=== PATIENT | male | born 1975 | race Caucasian/White ===

== ENCOUNTER 2017-12-01 14:11 | Inpatient (IN) | payer MEDICARE, MEDICAID ==
--- NOTE | 2017-12-01 14:41 | ED ---
General Adult HPI - General Chief complaint: Psychiatric Symptoms Stated complaint: suicidal Time Seen by Provider: 12/01/17 14:15 Source: patient, RN notes reviewed Mode of arrival: ambulatory Limitations: no limitations - History of Present Illness Initial comments: This is a 42-year-old male with a past medical history significant for seizures and schizophrenia. According to the caregiver the patient is taking all of his medications as exposed to. Caregiver states last night he started becoming violent towards her and verbally abusive and she felt threatened by him. Caregiver states she had to leave the home because she thought he might hurt her. Patient also continued to talk about suicidal ideations all throughout the night and again this morning. The girlfriend was scared so girlfriend brought him to the emergency department. Patient states he's had a consult by going outside and staying in the cold never coming in. Patient admits he wants to kill himself because his mom 3 years ago. - Related Data Home Medications Medication Instructions Recorded Confirmed Phenytoin Sodium Extended 200 mg PO BID 05/17/16 12/01/17 [Dilantin] levETIRAcetam [Keppra] 500 mg PO Q12H 05/17/16 12/01/17 carBAMazepine [TEGretol] 200 mg PO BID 12/01/17 12/01/17 Previous Rx's Medication Instructions Recorded Atorvastatin [Lipitor] 20 mg PO HS 30 Days #30 tab 12/05/17 QUEtiapine [SEROquel] 100 mg PO BID 30 Days #30 tab 12/05/17 Allergies Allergy/AdvReac Type Severity Reaction Status Date / Time sulfamethoxazole Allergy Unknown Verified 12/04/17 17:49 [From Bactrim] trimethoprim [From Bactrim] Allergy Unknown Verified 12/04/17 17:49 Review of Systems ROS Statement: Those systems with pertinent positive or pertinent negative responses have been documented in the HPI. ROS Other: All systems not noted in ROS Statement are negative. Past Medical History Past Medical History: Hypertension, Seizure Disorder Additional Past Medical History / Comment(s): current smoker. Approx 5 cig. a day History of Any Multi-Drug Resistant Organisms: None Reported Past Surgical History: No Surgical Hx Reported Past Anesthesia/Blood Transfusion Reactions: Unable to Obtain Past Psychological History: Schizophrenia Smoking Status: Current every day smoker Past Alcohol Use History: None Reported Past Drug Use History: None Reported General Exam - General Exam Comments Initial Comments: GENERAL: Patient is well-developed and well-nourished. Patient is nontoxic and well- hydrated and is in no distress. ENT: Neck is soft and supple. No significant lymphadenopathy is noted. Oropharynx is clear. Moist mucous membranes. Neck has full range of motion without eliciting any pain. EYES: The sclera were anicteric and conjunctiva were pink and moist. Extraocular movements were intact and pupils were equal round and reactive to light. Eyelids were unremarkable. PULMONARY: Unlabored respirations. Good breath sounds bilaterally. No audible rales rhonchi or wheezing was noted. CARDIOVASCULAR: There is a regular rate and rhythm without any murmurs gallops or rubs. ABDOMEN: Soft and nontender with normal bowel sounds. SKIN: Skin is clear with no lesions or rashes and otherwise unremarkable. NEUROLOGIC: Patient is alert and oriented x3. Cranial nerves II through XII are grossly intact. Motor and sensory are also intact. Normal speech, volume and content. Symmetrical smile. MUSCULOSKELETAL: Normal extremities with adequate strength and full range of motion. LYMPHATICS: No significant lymphadenopathy is noted PSYCHIATRIC: Patient states he suicidal. Patient also has some upper swollen the room particularly when asked to do something he usually uncooperative for a short period time and then he starts to cooperate. Limitations: no limitations Course Vital Signs 12/01/17 12/01/17 14:15 20:30 Temperature 97.6 F Pulse Rate 82 Respiratory 16 18 Rate Blood Pressure 131/94 O2 Sat by Pulse 99 Oximetry Medical Decision Making - Lab Data Result diagrams: 12/01/17 14:45 12/02/17 09:21 Lab Results 12/01/17 12/01/17 12/01/17 Range/Units 14:45 14:45 14:45 WBC (3.8-10.6) k/uL RBC (4.30-5.90) m/uL Hgb (13.0-17.5) gm/dL Hct (39.0-53.0) % MCV (80.0-100.0) fL MCH (25.0-35.0) pg MCHC (31.0-37.0) g/dL RDW (11.5-15.5) % Plt Count (150-450) k/uL Neutrophils % % Lymphocytes % % Monocytes % % Eosinophils % % Basophils % % Neutrophils # (1.3-7.7) k/uL Lymphocytes # (1.0-4.8) k/uL Monocytes # (0-1.0) k/uL Eosinophils # (0-0.7) k/uL Basophils # (0-0.2) k/uL Sodium (137-145) mmol/L Potassium (3.5-5.1) mmol/L Chloride (98-107) mmol/L Carbon Dioxide (22-30) mmol/L Anion Gap mmol/L BUN (9-20) mg/dL Creatinine (0.66-1.25) mg/dL Est GFR (CKD-EPI)AfAm (>60 ml/min/1.73 sqM) Est GFR (CKD-EPI)NonAf (>60 ml/min/1.73 sqM) Glucose (74-99) mg/dL Calcium (8.4-10.2) mg/dL Total Bilirubin (0.2-1.3) mg/dL AST (17-59) U/L ALT (21-72) U/L Alkaline Phosphatase (38-126) U/L Total Protein (6.3-8.2) g/dL Albumin (3.5-5.0) g/dL Urine Color Urine Appearance (Clear) Urine pH (5.0-8.0) Ur Specific [place] (1.001-1.035) Urine Protein (Negative) Urine Glucose (UA) (Negative) Urine Ketones (Negative) Urine Blood (Negative) Urine Nitrite (Negative) Urine Bilirubin (Negative) Urine Urobilinogen (<2.0) mg/dL Ur Leukocyte Esterase (Negative) Urine Opiates Screen Not Detected (NotDetected) Ur Oxycodone Screen Not Detected (NotDetected) Urine Methadone Screen Not Detected (NotDetected) Ur Propoxyphene Screen Not Detected (NotDetected) Ur Barbiturates Screen Detected H (NotDetected) Phenytoin 10.4 ug/mL U Tricyclic Antidepress Not Detected (NotDetected) Levetiracetam 9.1 (3.0-60.0) ug/mL Ur Phencyclidine Scrn Not Detected (NotDetected) Ur Amphetamines Screen Not Detected (NotDetected) U Methamphetamines Scrn Not Detected (NotDetected) U Benzodiazepines Scrn Not Detected (NotDetected) Urine Cocaine Screen Not Detected (NotDetected) U Marijuana (THC) Screen Not Detected (NotDetected) 12/01/17 12/01/17 12/01/17 Range/Units 14:45 14:45 14:45 WBC 5.9 (3.8-10.6) k/uL RBC 5.04 (4.30-5.90) m/uL Hgb 15.3 (13.0-17.5) gm/dL Hct 46.3 (39.0-53.0) % MCV 91.9 (80.0-100.0) fL MCH 30.4 (25.0-35.0) pg MCHC 33.1 (31.0-37.0) g/dL RDW 12.5 (11.5-15.5) % Plt Count 199 (150-450) k/uL Neutrophils % 66 % Lymphocytes % 21 % Monocytes % 8 % Eosinophils % 4 % Basophils % 0 % Neutrophils # 3.8 (1.3-7.7) k/uL Lymphocytes # 1.3 (1.0-4.8) k/uL Monocytes # 0.5 (0-1.0) k/uL Eosinophils # 0.2 (0-0.7) k/uL Basophils # 0.0 (0-0.2) k/uL Sodium 143 (137-145) mmol/L Potassium 4.0 (3.5-5.1) mmol/L Chloride 108 H (98-107) mmol/L Carbon Dioxide 23 (22-30) mmol/L Anion Gap 12 mmol/L BUN 8 L (9-20) mg/dL Creatinine 0.70 (0.66-1.25) mg/dL Est GFR (CKD-EPI)AfAm >90 (>60 ml/min/1.73 sqM) Est GFR (CKD-EPI)NonAf >90 (>60 ml/min/1.73 sqM) Glucose 89 (74-99) mg/dL Calcium 10.0 (8.4-10.2) mg/dL Total Bilirubin 0.6 (0.2-1.3) mg/dL AST 86 H (17-59) U/L ALT 20 L (21-72) U/L Alkaline Phosphatase 94 (38-126) U/L Total Protein 7.8 (6.3-8.2) g/dL Albumin 4.2 (3.5-5.0) g/dL Urine Color Light Yellow Urine Appearance Clear (Clear) Urine pH 6.0 (5.0-8.0) Ur Specific [place] 1.008 (1.001-1.035) Urine Protein Negative (Negative) Urine Glucose (UA) Negative (Negative) Urine Ketones Negative (Negative) Urine Blood Negative (Negative) Urine Nitrite Negative (Negative) Urine Bilirubin Negative (Negative) Urine Urobilinogen <2.0 (<2.0) mg/dL Ur Leukocyte Esterase Negative (Negative) Urine Opiates Screen (NotDetected) Ur Oxycodone Screen (NotDetected) Urine Methadone Screen (NotDetected) Ur Propoxyphene Screen (NotDetected) Ur Barbiturates Screen (NotDetected) Phenytoin ug/mL U Tricyclic Antidepress (NotDetected) Levetiracetam (3.0-60.0) ug/mL Ur Phencyclidine Scrn (NotDetected) Ur Amphetamines Screen (NotDetected) U Methamphetamines Scrn (NotDetected) U Benzodiazepines Scrn (NotDetected) Urine Cocaine Screen (NotDetected) U Marijuana (THC) Screen (NotDetected) Disposition Clinical Impression: Schizophrenia Disposition: ADMITTED IP TO THIS [facility] Time of Disposition: 15:09
[2017-12-01 14:59] LABS: Amphetamine Screen,Urine Not Detected (NotDetected); Barbiturate Screen,Urine Detected (NotDetected); Benzodiazepines Screen,Urine Not Detected (NotDetected); Cocaine Screen,Urine Not Detected (NotDetected); Methadone Screen, Urine Not Detected (NotDetected); Opiate Screen,Urine Not Detected (NotDetected); Oxycodone Screen, Urine Not Detected (NotDetected); Phencyclidine Screen,Urine Not Detected (NotDetected); Tricyclic Antidepressant,Urine Not Detected (NotDetected); Urn Cannabinoid Scrn Not Detected (NotDetected)
[2017-12-01 19:14] LABS: Basophils % (A) 0 %; Eosinophils # (A) 0.2 k/uL (0-0.7); Eosinophils % (A) 4 %; HCT 46.3 % (39.0-53.0); HGB 15.3 gm/dL (13.0-17.5); Lymphocytes # (A) 1.3 k/uL (1.0-4.8); Lymphocytes % (A) 21 %; MCH 30.4 pg (25.0-35.0); MCHC 33.1 g/dL (31.0-37.0); MCV 91.9 fL (80.0-100.0); Monocytes # (A) 0.5 k/uL (0-1.0); Monocytes % (A) 8 %; Neutrophils # (A) 3.8 k/uL (1.3-7.7); Neutrophils % (A) 66 %; Platelet Count 199 k/uL (150-450); RBC 5.04 m/uL (4.30-5.90); RDW 12.5 % (11.5-15.5); WBC 5.9 k/uL (3.8-10.6)
[2017-12-01 19:18] LABS: ALT 20 U/L (21-72); AST 86 U/L (17-59); Albumin 4.2 g/dL (3.5-5.0); Alkaline Phosphatase 94 U/L (38-126); Anion Gap 12 mmol/L; Blood Urea Nitrogen 8 mg/dL (9-20); Carbon Dioxide 23 mmol/L (22-30); Chloride 108 mmol/L (98-107); Glucose 89 mg/dL (74-99); Sodium 143 mmol/L (137-145); Total Bilirubin 0.6 mg/dL (0.2-1.3); Total Protein 7.8 g/dL (6.3-8.2)
[2017-12-01 19:50] LABS: Appearance,Urine Clear (Clear); Bilirubin,Urine Negative (Negative); Blood,Urine Negative (Negative); Color,Urine Light Yellow; Glucose,Urine (UA) Negative (Negative); Ketones,Urine Negative (Negative); Leukocyte Esterase,Urine Negative (Negative); Nitrite,Urine Negative (Negative); Protein,Urine Negative (Negative); Specific Gravity,Urine 1.008 (1.001-1.035); Urobilinogen,Urine <2.0 mg/dL (<2.0)
[2017-12-01] MEDS ORDERED: MAGNESIUM HYDROXIDE 2,400 MG/10 ML CUP PO PRN (22:34)
[2017-12-01] MEDS ORDERED: ZIPRASIDONE 20 MG VIAL IM PRN (22:34)
[2017-12-01] MEDS ORDERED: MAG HYDROX/AL HYDROX/SIMETH 30 ML CUP PO PRN (22:34)
[2017-12-01] MEDS ORDERED: ACETAMINOPHEN TAB 325 MG TAB PO PRN (22:34)
[2017-12-01] MEDS: ATORVASTATIN 20 MG TAB PO SCH (23:16)
[2017-12-01] MEDS: PHENYTOIN SODIUM EXTENDED 100 MG CAP PO SCH (23:16)
[2017-12-01] MEDS: levETIRAcetam 500 MG TAB PO SCH (23:16)
[2017-12-01] MEDS: carBAMazepine 200 MG TAB PO SCH (23:16)
[2017-12-02] MEDS: PHENYTOIN SODIUM EXTENDED 100 MG CAP PO SCH ×2 (08:42→20:03)
[2017-12-02] MEDS: carBAMazepine 200 MG TAB PO SCH ×2 (08:44→20:03)
[2017-12-02] MEDS ORDERED: BENZTROPINE MESYLATE 1 MG TAB PO SCH (09:00)
[2017-12-02] MEDS ORDERED: QUEtiapine 50 MG TAB PO SCH (09:00)
--- NOTE | 2017-12-02 09:03 | P.HP ---
Psychiatric H&P - . H&P Date: 12/02/17 History & Physical: Allergies Allergy/AdvReac Type Severity Reaction Status Date / Time sulfamethoxazole Allergy Unknown Verified 12/01/17 14:40 [From Bactrim] trimethoprim [From Bactrim] Allergy Unknown Verified 12/01/17 14:40 Vital Signs Temp 97.7 F 12/02/17 06:21 Pulse 73 12/02/17 06:21 Resp 16 12/02/17 06:21 BP 104/56 12/02/17 06:21 Pulse Ox 99 12/01/17 23:32 Intake & Output 12/01/17 12/02/17 12/02/17 18:59 06:59 18:59 Weight 83.461 kg 84.1 kg Laboratory Last Values WBC 5.9 k/uL (3.8-10.6) 12/01/17 14:45 RBC 5.04 m/uL (4.30-5.90) 12/01/17 14:45 Hgb 15.3 gm/dL (13.0-17.5) 12/01/17 14:45 Hct 46.3 % (39.0-53.0) 12/01/17 14:45 MCV 91.9 fL (80.0-100.0) 12/01/17 14:45 MCH 30.4 pg (25.0-35.0) 12/01/17 14:45 MCHC 33.1 g/dL (31.0-37.0) 12/01/17 14:45 RDW 12.5 % (11.5-15.5) 12/01/17 14:45 Plt Count 199 k/uL (150-450) 12/01/17 14:45 Neutrophils % 66 % 12/01/17 14:45 Lymphocytes % 21 % 12/01/17 14:45 Monocytes % 8 % 12/01/17 14:45 Eosinophils % 4 % 12/01/17 14:45 Basophils % 0 % 12/01/17 14:45 Neutrophils # 3.8 k/uL (1.3-7.7) 12/01/17 14:45 Lymphocytes # 1.3 k/uL (1.0-4.8) 12/01/17 14:45 Monocytes # 0.5 k/uL (0-1.0) 12/01/17 14:45 Eosinophils # 0.2 k/uL (0-0.7) 12/01/17 14:45 Basophils # 0.0 k/uL (0-0.2) 12/01/17 14:45 Sodium 143 mmol/L (137-145) 12/01/17 14:45 Potassium 4.0 mmol/L (3.5-5.1) 12/01/17 14:45 Chloride 108 mmol/L (98-107) H 12/01/17 14:45 Carbon Dioxide 23 mmol/L (22-30) 12/01/17 14:45 Anion Gap 12 mmol/L 12/01/17 14:45 BUN 8 mg/dL (9-20) L 12/01/17 14:45 Creatinine 0.70 mg/dL (0.66-1.25) 12/01/17 14:45 Est GFR (CKD-EPI)AfAm >90 (>60 ml/min/1.73 sqM) 12/01/17 14:45 Est GFR (CKD-EPI)NonAf >90 (>60 ml/min/1.73 sqM) 12/01/17 14:45 Glucose 89 mg/dL (74-99) 12/01/17 14:45 Calcium 10.0 mg/dL (8.4-10.2) 12/01/17 14:45 Total Bilirubin 0.6 mg/dL (0.2-1.3) 12/01/17 14:45 AST 86 U/L (17-59) H 12/01/17 14:45 ALT 20 U/L (21-72) L 12/01/17 14:45 Alkaline Phosphatase 94 U/L (38-126) 12/01/17 14:45 Total Protein 7.8 g/dL (6.3-8.2) 12/01/17 14:45 Albumin 4.2 g/dL (3.5-5.0) 12/01/17 14:45 Urine Color Light Yellow 12/01/17 14:45 Urine Appearance Clear (Clear) 12/01/17 14:45 Urine pH 6.0 (5.0-8.0) 12/01/17 14:45 Ur Specific [place] 1.008 (1.001-1.035) 12/01/17 14:45 Urine Protein Negative (Negative) 12/01/17 14:45 Urine Glucose (UA) Negative (Negative) 12/01/17 14:45 Urine Ketones Negative (Negative) 12/01/17 14:45 Urine Blood Negative (Negative) 12/01/17 14:45 Urine Nitrite Negative (Negative) 12/01/17 14:45 Urine Bilirubin Negative (Negative) 12/01/17 14:45 Urine Urobilinogen <2.0 mg/dL (<2.0) 12/01/17 14:45 Ur Leukocyte Esterase Negative (Negative) 12/01/17 14:45 Urine Opiates Screen Not Detected (NotDetected) 12/01/17 14:45 Ur Oxycodone Screen Not Detected (NotDetected) 12/01/17 14:45 Urine Methadone Screen Not Detected (NotDetected) 12/01/17 14:45 Ur Propoxyphene Screen Not Detected (NotDetected) 12/01/17 14:45 Ur Barbiturates Screen Detected (NotDetected) H 12/01/17 14:45 Phenytoin 10.4 ug/mL 12/01/17 14:45 U Tricyclic Antidepress Not Detected (NotDetected) 12/01/17 14:45 Ur Phencyclidine Scrn Not Detected (NotDetected) 12/01/17 14:45 Ur Amphetamines Screen Not Detected (NotDetected) 12/01/17 14:45 U Methamphetamines Scrn Not Detected (NotDetected) 12/01/17 14:45 U Benzodiazepines Scrn Not Detected (NotDetected) 12/01/17 14:45 Urine Cocaine Screen Not Detected (NotDetected) 12/01/17 14:45 U Marijuana (THC) Screen Not Detected (NotDetected) 12/01/17 14:45 12/02/17 08:43 Identification: Braulio Tarango is a 42 years old single white male living in [facility]. He was admitted to [facility] on 2017 under petition stating that he became violent towards his caregiver, verbally abusive and threatened etc. History of present illness: Patient is quite uncooperative and refuses to provide good history. He refused to either acknowledge or denied the report that he was abusive and violent and had threatened. All he can tell me is he lives with his stepmother, his brother and finani, Mrs. his mother who about 3 years ago from kidney failure. Because of this he said he feels unhappy and depressed. He however admitted that he gets angry sometimes, may get physically violent etc. his admission note indicates he has a diagnosis of schizophrenia. Previous psychiatric history/drug and alcohol abuse: Patient said he was never in a psychiatric hospital. He said he gets his outpatient treatment at [facility]. He is on Prolixin 10 mg a day, Benadryl 50 mg at bedtime, Klonopin 0.5 mg twice a day and Cogentin 2 mg 3 times a day. He also takes medicine for physical problems. Apparently he has been taking his medications regularly as prescribed and administered by his aunt. He denies abusing drugs and alcohol. Drug screening was positive for barbiturates. Previous medical history: He is ALLERGIC to Bactrim. He has seizure disorder and takes Dilantin and Tegretol and Keppra. H he said he did not have any surgery. He has hyperlipidemia and is on simvastatin. Social history: Patient refused to tell me how far he went to school. He however said he did not have any issues with learning or discipline. He said he had played football and basketball baseball soccer etc., was quite outgoing etc. He said he was raised well by his parents without abuse. He is currently disabled, gets SSI and has Medicare. He was not in the service. He refused to tell me about his denominational but he said he believes in God and goes to [employer]. He is heterosexual. He denies any pending legal issues. Family history: He denies any history of physical or psychiatric problems in the family. Mental status examination: This is a white ambulatory male with fair hygiene. He is unshaven. He is quite guarded and appears to be paranoid, refuses to provide adequate history and is uncooperative. He does not show any psychomotor agitation or retardation but he appears to be rather bizarre. His speech is short and goal directed but he refuses to provide good information. His mood is anxious and affect seems to be somewhat increased in intensity. He denies hallucinations and delusional thinking. But he appears to be quite paranoid from his behavior. He denies suicidal and homicidal ideas. He said today is 12/05/2017. He is not able to recall even one out of 3 items after 5 minutes. He is not able to name the current or the last 4 presidents. He refused to tell me how much is 8+7. His insight is poor and judgment is impaired as evidenced by his paranoia and history of threatening behavior at home. Diagnostic impression: Schizophrenia F 20.9 ALLERGY to Bactrim Seizure disorder Hyper lipidemia Treatment plan: He will have physical examination and psychosocial evaluation. He will receive milieu therapy group therapy individual therapy occupational therapy recreational therapy and medication education. He was counseled about his medication and it was agreed to change his Prolixin and Cogentin and Benadryl to Seroquel 50 mg twice a day and adjust the dose. He agreed to sign voluntary application and take medication. Continue anti-seizure medications and simvastatin for seizure disorder and hyperlipidemia. Treatment goals: He will be free of violent and threatening behavior. He will learn better coping skills. He will be able to provide better information. Discharge with outpatient follow-up. Estimated length of stay: 5-10 days.
[2017-12-02 10:11] LABS: ALT 35 U/L (21-72); AST 23 U/L (17-59); Albumin 4.2 g/dL (3.5-5.0); Alkaline Phosphatase 85 U/L (38-126); Anion Gap 9 mmol/L; Blood Urea Nitrogen 12 mg/dL (9-20); Calcium 9.6 mg/dL (8.4-10.2); Carbon Dioxide 31 mmol/L (22-30); Chloride 103 mmol/L (98-107); Cholesterol 218 mg/dL (<200); Glucose 94 mg/dL (74-99); HDL Cholesterol 57 mg/dL (40-60); LDL Cholesterol,Calculated 134 mg/dL (0-99); Potassium 4.3 mmol/L (3.5-5.1); Sodium 143 mmol/L (137-145); Total Bilirubin 0.4 mg/dL (0.2-1.3); Total Protein 7.2 g/dL (6.3-8.2); Triglycerides 137 mg/dL (<150)
[2017-12-02] MEDS: levETIRAcetam 500 MG TAB PO SCH ×2 (10:33→22:19)
[2017-12-02 11:03] LABS: Carbamazepine (Tegretol) 4.1 ug/mL
--- NOTE | 2017-12-02 14:09 | P.PN ---
Progress Note - Text Progress Note Date: 12/02/17 Patient received Seroquel 50 mg this morning by mouth. He does not have any adverse effects, is ambulatory and appears to be a little bit more relaxed. Plan: Since patient was started on a small dose of Seroquel to prevent adverse effects and since none he seen, Seroquel is increased to 100 mg twice a day.
--- NOTE | 2017-12-02 14:39 | P.HPIM ---
History of Present Illness H&P Date: 12/02/17 Chief Complaint: Depression Patient is a 42-year-old male with a known history of hypertension, seizure disorder and depression admitted due to violent behavior and thoughts of suicidal ideation. Patient has not been taking his medications. As per caregiver report he started to become violent towards her and verbally abusive and she felt threatened by him. Caregiver states she had to leave the home because she thought he might hurt her. Patient also continued to talk about suicidal ideations all throughout the night and again this morning. The girlfriend was scared so girlfriend brought him to the emergency department. Patient admits he wants to kill himself because his mom 3 years ago. Currently denied any complaints of chest pain or shortness of breath. No nausea vomiting or abdominal pain. No cough or sputum production. Patient continues to smoke 1 pack per day. Denied any drugs IVDU. No Recent illnesses. As per patient. Review of Systems \Constitutional: Patient denies any fever or chills . No generalized weakness or weight loss. Abdomen: Patient denied nausea vomiting and diarrhea and abdominal pain. Cardiovascular: Patient denies any chest pain or short of breath no palpitations. Respiratory: patient denied any cough is from production. No shortness of breath Neurologic: Patient denied any numbness or tingling headache. Musculoskeletal: Patient denies any complaints of joint swelling or deformity. Skin: Negative Psychiatric: Depressed Endocrine: No heat or cold intolerance. No recent weight gain. Genitourinary: No dysuria or hematuria. All other 14 point ROS negative except the above Past Medical History Past Medical History: Hypertension, Seizure Disorder Additional Past Medical History / Comment(s): current smoker. Approx 5 cig. a day History of Any Multi-Drug Resistant Organisms: None Reported Past Surgical History: No Surgical Hx Reported Past Anesthesia/Blood Transfusion Reactions: Unable to Obtain Past Psychological History: Schizophrenia Smoking Status: Current every day smoker Past Alcohol Use History: None Reported Past Drug Use History: None Reported Medications and Allergies Home Medications Medication Instructions Recorded Confirmed Type Benztropine Mesylate [Cogentin] 2 mg PO TID 05/17/16 12/01/17 History Fluphenazine HCl [fluPHENAZine HCL] 10 mg PO DAILY 05/17/16 12/01/17 History Phenytoin Sodium Extended 200 mg PO BID 05/17/16 12/01/17 History [Dilantin] Simvastatin [Zocor] 40 mg PO HS 05/17/16 12/01/17 History levETIRAcetam [Keppra] 500 mg PO Q12H 05/17/16 12/01/17 History carBAMazepine [TEGretol] 200 mg PO BID 12/01/17 12/01/17 History Allergies Allergy/AdvReac Type Severity Reaction Status Date / Time sulfamethoxazole Allergy Unknown Verified 12/01/17 14:40 [From Bactrim] trimethoprim [From Bactrim] Allergy Unknown Verified 12/01/17 14:40 Physical Exam Vitals: Vital Signs Temp Pulse Pulse Resp BP BP Pulse Ox 12/02/17 06:21 97.7 F 73 16 104/56 12/01/17 23:32 97.0 F L 73 16 128/89 99 12/01/17 22:33 97.3 F L 80 18 141/87 96 12/01/17 20:30 18 12/01/17 14:15 97.6 F 82 16 131/94 99 Intake and Output 12/01/17 12/02/17 12/02/17 22:59 06:59 14:59 Other: Weight 84.1 kg PHYSICAL EXAMINATION: Patient is lying in the bed comfortably, no acute distress, awake alert and oriented.. Patient talks slow HEENT: Normocephalic. Neck is supple. Pupils reactive. Nostrils clear. Oral cavity is moist. Ears reveal no drainage. Neck reveals no JVD, carotid bruits, or thyromegaly. CHEST EXAMINATION: Trachea is central. Symmetrical expansion. Lung tolbert clear to auscultation and percussion. CARDIAC: Normal S1, S2 with no gallops. No murmurs ABDOMEN: Soft. Bowel sounds normal. No organomegaly. No abdominal bruits. Extremities: reveal no edema. No clubbing or cyanosis Neurologically awake, alert, oriented x3 with well-coordinated movements. No focal deficits noted Skin: No rash or skin lesions. Psychiatric: Cooperative. Denied any suicidal ideation at this time. Musculoskeletal: No joint swelling or deformity. Normal range of motion. Results CBC & Chem 7: 12/01/17 14:45 12/02/17 09:21 Labs: Abnormal Lab Results - Last 24 Hours (Table) 12/01/17 12/01/17 12/02/17 Range/Units 14:45 14:45 09:21 Chloride 108 H (98-107) mmol/L Carbon Dioxide 31 H (22-30) mmol/L BUN 8 L (9-20) mg/dL AST 86 H (17-59) U/L ALT 20 L (21-72) U/L Cholesterol 218 H (<200) mg/dL LDL Cholesterol, Calc 134 H (0-99) mg/dL TSH 5.630 H (0.465-4.680) mIU/L Ur Barbiturates Screen Detected H (NotDetected) Thrombosis Risk Factor Assmnt - DVT/VTE Prophylaxis DVT/VTE Prophylaxis: Pharmacologic Prophylaxis ordered Assessment and Plan Assessment: Acute violent behavior and suicidal ideation History of schizophrenia Hypertension controlled Seizure disorder. patient is on Keppra and Dilantin at home Nicotine addiction Mild hypothyroidism. Slightly elevated TSH. 5.63 and free T4 0.96 Hyperlipidemia LDL 134 Slightly elevated liver enzymes. Normalized now Plan: Patient will be continued on his psychiatric medications. Continue with Keppra and Dilantin. TSH is slightly elevated but free T4 level is low-normal level. Patient can be started on levothyroxine 25 g daily. Continue to monitor closely. Further recommendations based on the clinical course Thank you for your consult. Time with Patient: Greater than 30
[2017-12-02 20:02] LABS: Hemoglobin A1C 4.8 % (4.0-6.0)
[2017-12-02] MEDS: ATORVASTATIN 20 MG TAB PO SCH (20:03)
[2017-12-02] MEDS: QUEtiapine 100 MG TAB PO SCH (20:03)
[2017-12-03] MEDS: carBAMazepine 200 MG TAB PO SCH ×2 (08:15→21:29)
[2017-12-03] MEDS: PHENYTOIN SODIUM EXTENDED 100 MG CAP PO SCH ×2 (08:15→21:29)
[2017-12-03] MEDS: QUEtiapine 100 MG TAB PO SCH ×2 (08:15→21:29)
[2017-12-03] MEDS: levETIRAcetam 500 MG TAB PO SCH ×2 (11:33→21:29)
--- NOTE | 2017-12-03 12:15 | P.PN ---
Progress Note - Text Progress Note Date: 12/03/17 Patient was seen for a follow-up examination. He is somewhat sleepy this morning. He has not been agitated or combative. He said he went to his groups today and it went well. He is a little bit more open about talking his issues discharge plans etc. today. He is still eager to go home this or Saturday. Today is Saturday. This is a white ambulatory male who is unshaven. He is somewhat sleepy. He does not show any psychomotor agitation or retardation. His speech is short and goal directed. His mood is rather dull and affect is somewhat constricted in range he denies hallucinations, delusional thinking, suicidal and homicidal ideas. He is oriented. But his intellectual capacity seems to be rather low. Plan: Continue Seroquel 100 mg twice a day, groups and other activities.
[2017-12-03] MEDS: ATORVASTATIN 20 MG TAB PO SCH (21:29)
[2017-12-04 06:48] VITALS: TEMP 97.6
[2017-12-04] MEDS: QUEtiapine 100 MG TAB PO SCH ×2 (08:56→20:52)
[2017-12-04] MEDS: carBAMazepine 200 MG TAB PO SCH ×2 (08:56→20:52)
[2017-12-04] MEDS: PHENYTOIN SODIUM EXTENDED 100 MG CAP PO SCH ×2 (08:57→20:52)
[2017-12-04] MEDS: levETIRAcetam 500 MG TAB PO SCH ×2 (11:41→22:07)
--- NOTE | 2017-12-04 11:42 | P.PN ---
Progress Note - Text Progress Note Date: 12/04/17 Patient was seen for a routine follow-up examination. He is calm polite and cooperative. He is not sleepy today. He slept well last night. He has been attending his groups. He uses foul language and he was advised not to use foul language. He said he will try not to. He takes his medications and does not have any adverse effects. Today he said he had difficulty in learning and was since special-education. He could not tell me the name take for his learning problems. This is a white ambulatory male with adequate hygiene. He is polite and cooperative. He does not show any psychomotor agitation or retardation. His speech is spontaneous and goal-directed. But he uses foul language. His mood is euthymic and affect is appropriate. He continues to deny suicide and homicide thoughts. He also denies hallucinations and delusional thinking. His insight and judgment have improved as evidenced by not getting violent or threatening he is oriented. But he still has some cognitive difficulties. Plan: Continue Seroquel, medicines for physical problems, groups and other activities. Consider discharging him tomorrow if nothing happened yesterday.
[2017-12-04 17:49] VITALS: BMI 25.1
[2017-12-04] MEDS: ATORVASTATIN 20 MG TAB PO SCH (20:52)
[2017-12-05 05:50] VITALS: BP 119/70; PULSE 68; RESP 18
--- NOTE | 2017-12-05 08:26 | P.DS ---
Providers Date of admission: 12/01/17 22:26 Expected date of discharge: 12/05/17 Attending physician: Juani Calvin Consults: 12/01/17 22:34 Consult Physician Routine Consulting Provider: Nena Reddy Consult Reason/Comments: H& P medical management Do you want consulting provider notified?: Yes, Notify in am Primary care physician: [facility] Course: Patient had his physical examination psychiatric evaluation and psychosocial evaluation. His Zocor was changed to Lipitor by the admitting physician or the physician who gave him physical examination. After psychiatric evaluation, his Prolixin Benadryl and high dose of Cogentin where discontinued and he was started with Seroquel 50 mg twice a day. He did not have any adverse effects from this dose and it was increased to 100 mg twice a day. The first day he was rather sleepy but after this he was not sleepy during the daytime at all. Patient continued to improve did not have any angry outbursts, threatening behavior or psychotic behavior. He also became more cooperative and was willing to provide better information. Even though his admitting doctor said he has a diagnosis of schizophrenia I did not see any sign or symptom of schizophrenia in him. He reported that he had difficulty in learning when he was going to school and was in special classes. In view of all these his primary diagnosis does not seem to be schizophrenia. Patient has been attending his groups, socializing with other patients and getting along well with staff members. He was visited by his girlfriend/fianc/ and she was happy to see him do so well. In view of all these it was agreed to discharge him. Condition on discharge: This is a white ambulatory male with adequate hygiene. He is unshaven. He does not show any psychomotor agitation or retardation. His speech is spontaneous and goal-directed. Mood is euthymic and affect is appropriate to thought content. He continues to deny suicidal and homicidal ideas. He also denies hallucinations and delusional thinking. He is well oriented with adequate memory and concentration but he has major difficulties in addition subtraction and multiplication etc. He also has deficits in general knowledge. His insight and judgment have improved. 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 Unspecified intellectual disability F 79. ALLERGY to Bactrim. Seizure disorder Hyperlipidemia. Patient was advised to take his medications as prescribed, not to drive or operate machinery, not to drink alcohol or use drugs, seek anger management classes, learn better coping skills through therapy, if he gets suicidal or homicidal thoughts to discuss with his therapist and if he cannot reach the therapist to go to the nearest ER. He agreed with all these recommendations. Plan - Discharge Summary Discharge Rx Participant: No New Discharge Prescriptions: New Atorvastatin [Lipitor] 20 mg PO HS 30 Days #30 tab QUEtiapine [SEROquel] 100 mg PO BID 30 Days #30 tab Continue levETIRAcetam [Keppra] 500 mg PO Q12H Phenytoin Sodium Extended [Dilantin] 200 mg PO BID carBAMazepine [TEGretol] 200 mg PO BID Discontinued Simvastatin [Zocor] 40 mg PO HS Fluphenazine HCl [fluPHENAZine HCL] 10 mg PO DAILY Benztropine Mesylate [Cogentin] 2 mg PO TID Discharge Medication List Phenytoin Sodium Extended [Dilantin] 200 mg PO BID 05/17/16 [History] levETIRAcetam [Keppra] 500 mg PO Q12H 05/17/16 [History] carBAMazepine [TEGretol] 200 mg PO BID 12/01/17 [History] Atorvastatin [Lipitor] 20 mg PO HS 30 Days #30 tab 12/05/17 [Rx] QUEtiapine [SEROquel] 100 mg PO BID 30 Days #30 tab 12/05/17 [Rx] Follow up Appointment(s)/Referral(s): [facility] [Outside] - 12/11/17 9:00 am (12/11/17 at 9:00am - injection with nurse 12/11/17 at 9:30am with Celestino 12/25/17 at 9:00am med review with Dr. Colón) Jose Quinonez MD [Primary Care Provider] - 1-2 days
[2017-12-05] MEDS: PHENYTOIN SODIUM EXTENDED 100 MG CAP PO SCH (08:33)
[2017-12-05] MEDS: QUEtiapine 100 MG TAB PO SCH (08:33)
[2017-12-05] MEDS: carBAMazepine 200 MG TAB PO SCH (08:33)
[2017-12-05] MEDS: levETIRAcetam 500 MG TAB PO SCH (10:46)
== END 2017-12-05 11:58 | disposition home or self-care (01) | DRG 882 ==
LOC: EC 14:11 → 3MHU 22:26
PROVIDERS: ADMIT Psychiatry & Neurology Psychiatry; ATTEND Psychiatry & Neurology Psychiatry
DX: F43.25 Adjustment disorder with mixed disturbance of emotions and conduct (principal); R45.851 Suicidal ideations; F20.9 Schizophrenia, unspecified; G40.909 Epilepsy, unspecified, not intractable, without status epilepticus; F79 Unspecified intellectual disabilities; F32.9 Major depressive disorder, single episode, unspecified; E78.5 Hyperlipidemia, unspecified; I10 Essential (primary) hypertension; F17.210 Nicotine dependence, cigarettes, uncomplicated; E03.9 Hypothyroidism, unspecified; R74.8 Abnormal levels of other serum enzymes; Z79.899 Other long term (current) drug therapy; Z88.2 Allergy status to sulfonamides
CPT/HCPCS: 36415; 80053; 80061; 80156; 80177; 80185; 80306; 81003; 82075; 83036; 84439; 84443; 85025; 99285

== ENCOUNTER → 2019-04-01 | Outpatient (CLI) | payer MEDICARE, OTHER ==
--- NOTE | 2019-04-03 11:19 | MR ---
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 TECHNIQUE: Multiplanar, multisequence images of the knee is performed without IV contrast. FINDINGS: MEDIAL MENISCUS: Anterior and posterior horns are intact without tear. LATERAL MENISCUS: Anterior and posterior horns are intact without tear. CRUCIATE LIGAMENTS: The anterior cruciate ligament is intact. There is accessory meniscal femoral lig ament of Piedra anterior to PCL confirmed on coronal and sagittal images. There is extensive partia l tear of the fibers of the distal posterior cruciate ligament seen best on sagittal image 18 COLLATERAL LIGAMENTS: The medial collateral ligament and lateral collateral ligament complex are inta ct. Mild fluid signal surrounds medial collateral and lateral collateral ligament complexes. EXTENSOR MECHANISM: Visualized quadriceps and patellar tendons are intact. EFFUSION: There is small suprapatellar joint effusion. POPLITEAL CYST: No popliteal/sterling cyst. TRICOMPARTMENT SPACES: There is mild to moderate narrowing patellofemoral compartment with mild narro wing medial and lateral tibiofemoral compartments. No significant spurring is present. CARTILAGE: Tricompartmental articular cartilage is fairly well preserved. BONE MARROW SIGNAL: No focal abnormal marrow signal is appreciated. OTHER: No additional significant abnormality is appreciated. IMPRESSION: No meniscal tear is evident. Significant tear of the distal PCL. Mild to moderate tricomp artment degenerative changes. Small suprapatellar joint effusion.
== END | disposition home or self-care (01) ==
LOC: RADMRIMAIN 12:50
PROVIDERS: ATTEND Orthopaedic Surgery
DX: M25.562 Pain in left knee (principal); M25.462 Effusion, left knee

== ENCOUNTER 2024-08-14 20:43 | Observation (INO) | payer MEDICARE, OTHER ==
--- NOTE | 2024-08-14 22:05 | ED ---
General Adult HPI - General Chief complaint: Seizure Stated complaint: Seizure Time Seen by Provider: 08/14/24 21:35 Source: EMS Mode of arrival: EMS - History of Present Illness Initial comments: Braulio is a 49-year-old male who was brought to the ER today by EMS. Patient has a history of seizure disorders he lives at a care facility in [facility], apparently he had a seizure there. Patient does not recall having a seizure does not know when his last seizure was he is administered his meds by the caregivers believes he has been compliant. Denies any complaints. - Related Data Home Medications Medication Instructions Recorded Confirmed Phenytoin Sodium Extended 200 mg PO BID 05/17/16 12/01/17 [Dilantin] levETIRAcetam [Keppra] 500 mg PO Q12H 05/17/16 12/01/17 carBAMazepine [TEGretol] 200 mg PO BID 12/01/17 12/01/17 Previous Rx's Medication Instructions Recorded Atorvastatin [Lipitor] 20 mg PO HS 30 Days #30 tab 12/05/17 QUEtiapine [SEROquel] 100 mg PO BID 30 Days #30 tab 12/05/17 Allergies Allergy/AdvReac Type Severity Reaction Status Date / Time sulfamethoxazole Allergy Unknown Verified 12/04/17 17:49 [From Bactrim] trimethoprim [From Bactrim] Allergy Unknown Verified 12/04/17 17:49 Review of Systems ROS Statement: Those systems with pertinent positive or pertinent negative responses have been documented in the HPI. ROS Other: All systems not noted in ROS Statement are negative. Past Medical History Past Medical History: Hypertension, Seizure Disorder Additional Past Medical History / Comment(s): current smoker. Approx 5 cig. a day History of Any Multi-Drug Resistant Organisms: None Reported Past Surgical History: No Surgical Hx Reported Past Anesthesia/Blood Transfusion Reactions: Unable to Obtain Past Psychological History: Schizophrenia Past Alcohol Use History: None Reported Past Drug Use History: None Reported General Exam - General Exam Comments Initial Comments: Physical Exam GENERAL: Patient is well-developed and well-nourished. Patient is nontoxic and well-hydrated and is in no distress. HENT: Normocephalic, Atraumatic. EYES: PERRL, EOMI PULMONARY: Unlabored respirations. CARDIOVASCULAR: RRR Warm and well perfused extremities ABDOMEN: Non-distended SKIN: No rashes or bruising : Deferred NEUROLOGIC: Alert and oriented poor historian MUSCULOSKELETAL: Moving all extremities with no apparent injury PSYCHIATRIC: No SI/HI Course Vital Signs 08/14/24 08/15/24 21:14 00:01 Temperature 97.4 F L Pulse Rate 82 91 Respiratory 18 18 Rate Blood Pressure 138/93 114/89 O2 Sat by Pulse 95 95 Oximetry Medical Decision Making - Medical Decision Making Was pt. sent in by a medical professional or institution (, [facility], MEDICAL DETAIL REPRESENTATIVE, urgent care, hospital, or detention...) When possible be specific @ -No Did you speak to anyone other than the patient for history (EMS, parent, family, police, friend...)? What history was obtained from this source @ -EMS Did you review nursing and triage notes (agree or disagree)? Why? @ -I reviewed and agree with nursing and triage notes Were old charts reviewed (outside hosp., previous admission, EMS record, old EKG, old radiological studies, urgent care reports/EKG's, detention records)? Report findings @ -No old charts were reviewed Differential Diagnosis (chest pain, altered mental status, abdominal pain women, abdominal pain men, vaginal bleeding, weakness, fever, dyspnea, syncope, headache, dizziness, GI bleed, back pain, seizure, CVA, palpatations, mental health)? @ -Differential Seizure: Recurrent seizure disorder, febrile seizure, alcohol withdrawal, stimulants, meningitis, encephalitis, intercranial hemorrhage, intracranial tumor, stroke, eclampsia, thyrotoxicosis, hypocalcemia, hyponatremia, hypernatremia, hypomagnesemia, psychogenic, this is not meant to be an all-inclusive list. EKG interpreted by me (3pts min.). @ -As above X-rays interpreted by me (1pt min.). @ -None done CT interpreted by me (1pt min.). @ -No masses or midline shift, no bleed U/S interpreted by me (1pt. min.). @ -None done What testing was considered but not performed or refused? (CT, X-rays, U/S, labs)? Why? @ -None What meds were considered but not given or refused? Why? @ -None Did you discuss the management of the patient with other professionals (pro fessionals i.e. , [facility], MEDICAL DETAIL REPRESENTATIVE, lab, RT, psych nurse, elementary school social worker, folded cloth taper, teacher, policy officer, behavioral health case manager)? Give summary @ -Admitting physician Was smoking cessation discussed for >3mins.? @ -No Was critical care preformed (if so, how long)? @ -No Were there social determinants of health that impacted care today? How? (Homelessness, low income, unemployed, alcoholism, drug addiction, keen sportation, low edu. Level, literacy, decrease access to med. care, fdc, rehab)? @ -No Was there de-escalation of care discussed even if they declined (Discuss DNR or withdrawal of care, Hospice)? DNR status @ -No What co-morbidities impacted this encounter? (DM, HTN, Smoking, COPD, CAD, Cancer, CVA, ARF, Chemo, Hep., AIDS, mental health diagnosis, sleep apnea, morbid obesity)? @ -Seizure disorder Was patient admitted / discharged? Hospital course, mention meds given and route, prescriptions, significant lab abnormalities, going to OR and other pertinent info. @ -Admit Patient was seen and history was obtained from EMS and the patient. Seems as though the patient may have had a seizure, he is a very poor historian he has no recall of the events he is slightly confused may be postictal. Labs and imaging were obtained. Patient did not have any witnessed tonic-clonic activity here but seem to get more confused and act even more postictal when he was taken to CT he was given Ativan and a dose of IV Keppra was ordered. Labs resulted with no critical findings patient's Dilantin level was undetectable though it is listed as one of his regular medications. No acute findings. Given that the patient likely had at least seizures today we will plan to place in observation for evaluation by neurology and possible medication adjustments. Undiagnosed new problem with uncertain prognosis? @ -No Drug Therapy requiring intensive monitoring for toxicity (Heparin, Nitro, Insulin, Cardizem)? @ -No Were any procedures done? @ -No Diagnosis/symptom? @ -Breakthrough seizures Acute, or Chronic, or Acute on Chronic? @ -Default Uncomplicated (without systemic symptoms) or Complicated (systemic symptoms)? @ -Default Side effects of treatment? @ -No Exacerbation, Progression, or Severe Exacerbation? @ -No Poses a threat to life or bodily function? How? (Chest pain, USA, OR, pneumonia, PE, COPD, DKA, ARF, appy, cholecystitis, CVA, Diverticulitis, Homicidal, Suicidal, threat to staff... and all critical care pts) @ -No - Lab Data Result diagrams: 08/14/24 21:25 08/14/24 22:13 Lab Results 08/14/24 08/14/24 08/14/24 Range/Units 21:25 21:25 22:13 WBC 10.8 H (3.8-10.6) k/uL RBC 4.84 (4.30-5.90) m/uL Hgb 15.7 (13.0-17.5) gm/dL Hct 45.5 (39.0-53.0) % MCV 93.9 (80.0-100.0) fL MCH 32.4 (25.0-35.0) pg MCHC 34.5 (31.0-37.0) g/dL RDW 12.5 (11.5-15.5) % Plt Count 194 (150-450) k/uL MPV 8.3 Neutrophils % 73 % Lymphocytes % 16 % Monocytes % 7 % Eosinophils % 2 % Basophils % 1 % Neutrophils # 7.9 H (1.3-7.7) k/uL Lymphocytes # 1.8 (1.0-4.8) k/uL Monocytes # 0.7 (0-1.0) k/uL Eosinophils # 0.2 (0-0.7) k/uL Basophils # 0.1 (0-0.2) k/uL Sodium 137 (137-145) mmol/L Potassium 4.0 (3.5-5.1) mmol/L Chloride 109 H (98-107) mmol/L Carbon Dioxide 23 (22-30) mmol/L Anion Gap 5 mmol/L BUN 8 L (9-20) mg/dL Creatinine 0.83 (0.66-1.25) mg/dL Est GFR (CKD-EPI)AfAm >90 (>60 ml/min/1.73 sqM) Est GFR (CKD-EPI)NonAf >90 (>60 ml/min/1.73 sqM) Glucose 125 H (74-99) mg/dL Calcium 9.3 (8.4-10.2) mg/dL Magnesium 1.9 (1.6-2.3) mg/dL Total Bilirubin 0.5 (0.2-1.3) mg/dL AST 24 (17-59) U/L ALT 26 (4-49) U/L Alkaline Phosphatase 106 (38-126) U/L Total Protein 7.0 (6.3-8.2) g/dL Albumin 4.1 (3.5-5.0) g/dL Phenytoin <3.0 ug/mL Disposition Clinical Impression: Generalized seizure Disposition: ADMITTED IP TO THIS [facility] Instructions (If sedation given, give patient instructions): Seizure/Epilepsy Discharge Instructions & Follow-Up Is patient prescribed a controlled substance at d/c from ED?: No Referrals: None,Stated [Primary Care Provider] - 1-2 days
[2024-08-14] MEDS ORDERED: levETIRAcetam IV 1,000 MG in SODIUM CHLORIDE 0.9% 250 ML IVPB ONE (22:25)
[2024-08-14 22:26] LABS: Basophils # (A) 0.1 k/uL (0-0.2); Basophils % (A) 1 %; Eosinophils # (A) 0.2 k/uL (0-0.7); Eosinophils % (A) 2 %; HCT 45.5 % (39.0-53.0); HGB 15.7 gm/dL (13.0-17.5); Lymphocytes # (A) 1.8 k/uL (1.0-4.8); Lymphocytes % (A) 16 %; MCH 32.4 pg (25.0-35.0); MCHC 34.5 g/dL (31.0-37.0); MCV 93.9 fL (80.0-100.0); Mean Platelet Volume 8.3; Monocytes # (A) 0.7 k/uL (0-1.0); Monocytes % (A) 7 %; Neutrophils # (A) 7.9 k/uL (1.3-7.7); Neutrophils % (A) 73 %; Platelet Count 194 k/uL (150-450); RBC 4.84 m/uL (4.30-5.90); RDW 12.5 % (11.5-15.5); WBC 10.8 k/uL (3.8-10.6)
[2024-08-14 22:28] LABS: ALT 26 U/L (4-49); AST 24 U/L (17-59); African American GFR (CKD) >90 (>60 ml/min/1.73 sqM); Albumin 4.1 g/dL (3.5-5.0); Alkaline Phosphatase 106 U/L (38-126); Anion Gap 5 mmol/L; Blood Urea Nitrogen 8 mg/dL (9-20); Calcium 9.3 mg/dL (8.4-10.2); Carbon Dioxide 23 mmol/L (22-30); Chloride 109 mmol/L (98-107); Glucose 125 mg/dL (74-99); Magnesium 1.9 mg/dL (1.6-2.3); Non-African American GFR(CKD) >90 (>60 ml/min/1.73 sqM); Sodium 137 mmol/L (137-145); Total Bilirubin 0.5 mg/dL (0.2-1.3)
[2024-08-14] MEDS: LORazepam 2 MG/ML INJ IV STA (22:30)
[2024-08-14] MEDS: SODIUM CHLORIDE 0.9% 500 ML 500 ML IV STA (22:34)
[2024-08-14] MEDS: levETIRAcetam IV 500 MG/5 ML VIAL IVP ONE (22:44)
--- NOTE | 2024-08-14 23:02 | CT ---
EXAMINATION TYPE: CT brain wo con DATE OF EXAM: 08/14/2024 COMPARISON: None. HISTORY: seizure activity ams. unable to follow commands verbally CT DLP: 3907.4 mGycm. Automated Exposure Control for Dose Reduction was Utilized. TECHNIQUE: CT scan of the head is performed without contrast. FINDINGS: Exam is slightly suboptimal with some motion. There is no acute intracranial hemorrhage, m ass effect, or midline shift identified. The ventricles and sulci are within normal limits in size. Palm-white matter differentiation is fairly well maintained. The globes are intact bilaterally. There is mucous retention cyst or polyp in the left ethmoid sinuses and inferior left maxillary sinus. IMPRESSION: No acute intracranial hemorrhage or midline shift is seen. [facility], , 08/14/2024 10:59 PM
[2024-08-15] MEDS ORDERED: NALOXONE 0.4 MG/ML 1 ML VIAL IV PRN (04:21)
--- NOTE | 2024-08-15 04:41 | P.HPIM ---
History of Present Illness H&P Date: 08/15/24 Patient is a 49-year-old male with a PMH of developmental delay, schizophrenia, hypertension, and seizure disorder, resident of care facility in [facility] who was brought to the emergency room by EMS after a witnessed seizure episode. Patient does not recall the episode and does not know why he is in the emergency room. He reports feeling somewhat tired at the time of interview but had no additional complaints. Patient does note that he has been given all his home medications by his caretakers and appears to be on multiple antiepileptics denied experiencing chest discomfort, shortness of breath, fever, chills, cough, nausea, vomiting, abdominal pain, diarrhea. Laboratory evaluation in the emergency room revealed Dilantin levels undetectable, WBC count of 10.8, chloride 109, BUN 8, glucose 125. CT brain was unremarkable with EKG showing sinus rhythm with PVCs at 83 bpm as reviewed by me. ED documentation reviewed and case discussed with ED provider. Review of systems: Pertinent positives and negatives as discussed in HPI, a complete review of systems was performed and all other systems are negative. Physical examination: Vital signs reviewed General: non toxic, no distress, appears at stated age, normal weight Derm: no unusual rashes/lesions, warm Head: atraumatic, normocephalic, symmetric Eyes: EOMI, no lid lag, anicteric sclera, pupils equal round reactive to light ENT: Nose and ears atraumatic Neck: No cervical lymphadenopathy, trachea midline, supple Mouth: no lip lesion, mucus membranes moist Cardiovascular: S1S2 reg, no murmur, positive dorsalis pedis pulse bilateral, no edema Lungs: CTA bilateral, no rhonchi, no rales, no accessory muscle use Abdominal: soft, nontender to palpation, no guarding Ext: muscle strength 5 out of 5 in all 4 extremities grossly, no gross muscle atrophy, no contractures, Neuro: CN II-XI grossly intact, no gross focal neuro deficits Psych: Alert, oriented, appropriate affect Assessment: Breakthrough seizure, possibly due to noncompliance Leukocytosis, no signs of active infection at this time, likely due to stress Imaging: CT brain was unremarkable with EKG showing sinus rhythm with PVCs at 83 bpm as reviewed by me. Data Review: Laboratory evaluation in the emergency room revealed Dilantin levels undetec table, WBC count of 10.8, chloride 109, BUN 8, glucose 125. Plan: Continue with Keppra 1 g twice daily for now Neurology consulted Perform medication reconciliation in the morning Monitor CBC Fall and seizure precautions DVT prophylaxis: Lovenox subq The patient is admitted with an anticipated [] than 2 midnight stay for evaluation of [] CODE STATUS: Full Code Discussed with: Patient Anticipated discharge place: Home Past Medical History Past Medical History: Hypertension, Seizure Disorder Additional Past Medical History / Comment(s): current smoker. Approx 5 cig. a day History of Any Multi-Drug Resistant Organisms: None Reported Past Surgical History: No Surgical Hx Reported Past Anesthesia/Blood Transfusion Reactions: Unable to Obtain Past Psychological History: Schizophrenia Past Alcohol Use History: None Reported Past Drug Use History: None Reported Medications and Allergies Home Medications Medication Instructions Recorded Confirmed Type Phenytoin Sodium Extended 200 mg PO BID 05/17/16 12/01/17 History [Dilantin] levETIRAcetam [Keppra] 500 mg PO Q12H 05/17/16 12/01/17 History carBAMazepine [TEGretol] 200 mg PO BID 12/01/17 12/01/17 History Atorvastatin [Lipitor] 20 mg PO HS 30 Days #30 tab 12/05/17 Rx QUEtiapine [SEROquel] 100 mg PO BID 30 Days #30 tab 12/05/17 Rx Allergies Allergy/AdvReac Type Severity Reaction Status Date / Time sulfamethoxazole Allergy Unknown Verified 12/04/17 17:49 [From Bactrim] trimethoprim [From Bactrim] Allergy Unknown Verified 12/04/17 17:49 Physical Exam Vitals: Vital Signs Temp Pulse Resp BP Pulse Ox 08/15/24 00:01 91 18 114/89 95 08/14/24 21:14 97.4 F L 82 18 138/93 95 Intake and Output 08/14/24 08/14/24 08/15/24 14:59 22:59 06:59 Other: Weight 88.451 kg Results CBC & Chem 7: 08/14/24 21:25 08/14/24 22:13 Labs: Abnormal Lab Results - Last 24 Hours (Table) 08/14/24 08/14/24 Range/Units 21:25 22:13 WBC 10.8 H (3.8-10.6) k/uL Neutrophils # 7.9 H (1.3-7.7) k/uL Chloride 109 H (98-107) mmol/L BUN 8 L (9-20) mg/dL Glucose 125 H (74-99) mg/dL
[2024-08-15] MEDS ORDERED: PHENYTOIN SODIUM EXTENDED 100 MG CAP PO SCH ×2 (10:15→21:00)
[2024-08-15] MEDS: PHENYTOIN SODIUM INJ 1,000 MG in SODIUM CHLORIDE 0.9% 100 ML IVPB STA (10:48)
[2024-08-15] MEDS: carBAMazepine 200 MG TAB PO SCH (10:49)
[2024-08-15] MEDS: ENOXAPARIN 40 MG/0.4 ML SYRINGE SQ SCH (11:00)
[2024-08-15 12:40] LABS: Alcohol <10 mg/dL
--- NOTE | 2024-08-15 14:52 | P.CNNES ---
History of Present Illness Consult date: 08/15/24 Requesting physician: Oliva James Reason for Consult: breakthrough seizure History of Present Illness: This is a 49-year-old gentleman with history of seizure, developmental delay who presents to the emergency department from his nursing facility for seizure-like activity. History is obtained from medical record as well as nurse. Unable to obtain detailed history from the patient but it seems that he had seizure at his nursing facility and patient is unable to tell us what medication he is on. With option he did agree that he was on Dilantin and he stated he is taking his medication. He does acknowledge that he smokes. Upon asking her if he drinks alcohol he said he does not want to talk about it then later he said yes he does but did not tell us how much. It seems that he lives and [facility]. Some of the workup during this hospital visit consisted of: I reviewed the lab workup. CT of the head is reported as no acute intracranial hemorrhage or midline shift. I personally reviewed the CT and agree with the report. Still at a level is less than 3 which is considered very subtherapeutic. Review of Systems Limited. Past Medical History Past Medical History: Hypertension, Seizure Disorder Additional Past Medical History / Comment(s): current smoker. Approx 5 cig. a day History of Any Multi-Drug Resistant Organisms: None Reported Past Surgical History: No Surgical Hx Reported Past Anesthesia/Blood Transfusion Reactions: Unable to Obtain Past Psychological History: Schizophrenia Smoking Status: Current every day smoker Past Alcohol Use History: None Reported Past Drug Use History: None Reported Medications and Allergies Home Medications Medication Instructions Recorded Confirmed Type Phenytoin Sodium Extended 200 mg PO TID 05/17/16 08/15/24 History [Dilantin] levETIRAcetam [Keppra] 500 mg PO BID 05/17/16 08/15/24 History Atorvastatin [Lipitor] 40 mg PO DAILY 08/15/24 08/15/24 History Benztropine Mesylate [Cogentin] 1 mg PO BID 08/15/24 08/15/24 History LORazepam [Ativan] 1 mg PO BID 08/15/24 08/15/24 History Lacosamide [Vimpat] 200 mg PO BID 08/15/24 08/15/24 History Montelukast [Singulair] 10 mg PO DAILY 08/15/24 08/15/24 History Omeprazole [PriLOSEC] 20 mg PO AC-BRKFST 08/15/24 08/15/24 History PARoxetine HCL [Paxil] 40 mg PO HS 08/15/24 08/15/24 History Propranolol LA [Inderal LA] 60 mg PO DAILY 08/15/24 08/15/24 History fluPHENAZine decanoate [Prolixin 25 mg IM Q14D 08/15/24 08/15/24 History Decanoate] Allergies Allergy/AdvReac Type Severity Reaction Status Date / Time sulfamethoxazole Allergy Rash/Hives Verified 08/15/24 10:56 [From Bactrim] trimethoprim [From Bactrim] Allergy Rash/Hives Verified 08/15/24 10:56 Physical Examination - Vital Signs Vital Signs: Vital Signs Temp Pulse Pulse Resp BP BP Pulse Ox 08/15/24 13:30 98.1 F 97 15 127/80 96 08/15/24 07:44 97.7 F 100 16 118/84 97 08/15/24 06:39 99 18 118/87 95 08/15/24 00:01 91 18 114/89 95 08/14/24 21:14 97.4 F L 82 18 138/93 95 Intake and Output 08/14/24 08/15/24 08/15/24 22:59 06:59 14:59 Other: Voiding Method Toilet Urinal Weight 88.451 kg 88.451 kg General: Lying in bed and does not appear in acute distress. Neuro: Very limited. Is awake alert oriented to self as well as he stated he is in the hospital. It appears the patient has underlying word finding difficulty and is slow. He is able to name objects such as pen and phone. Pupils are round equal reactive to light. Patient tracks. He does not cooperate for visual tolbert. No facial weakness. No dysarthria Regarding strength is hard to assess individual muscle strength because of his cooperation but he is moving his uppers spontaneously. He does not want to cooperate for the sensory reflex exam or cerebellar. Results - Laboratory Findings CBC and BMP: 08/14/24 21:25 08/14/24 22:13 Abnormal Lab Findings: Abnormal Labs 08/14/24 08/14/24 21:25 22:13 WBC 10.8 H Neutrophils # 7.9 H Chloride 109 H BUN 8 L Glucose 125 H Assessment and Plan Assessment: This is a 49-year-old gentleman with underlying history of seizure, developmental delay, tobacco use and alcohol use who presents from his nursing facility because of seizure-like activity. He states he is on statin but it seems his Dilantin is very subtherapeutic less than 3 Breakthrough seizure and likely due to medication noncompliance especially with subtherapeutic Dilantin Underlying seizure History of developmentally delay Tobacco use Alcohol use Plan: I loaded the patient with Dilantin 1000 mg once then his Dilantin initially 200 mg twice daily was resumed Unconfirmed medication states that he is on Tegretol and I resumed that Was given Ativan 2 mg once as well as Keppra 1000 mg once by the ED team. Seizure precautions seizure pads Will hold off any EEG because of his unknown history of seizure I ordered vitamin B12, folate, TSH, alcohol level, urine drug screen, Tegretol level Will defer the rest of the medical management to primary and other specialist ADDENDUM: It appears his confirmed seizure medication for the primary team were Keppra 500 mg twice daily, Dilantin extended release 200 mg 1 tablet 3 times daily, Vimpat 200 mg twice daily therefore will resume them. Discussed with nurse and primary team. Thank you for the consultation Time with Patient: Greater than 30
[2024-08-15] MEDS: PHENYTOIN SODIUM EXTENDED 100 MG CAP PO SCH (16:11)
[2024-08-15] MEDS: BENZTROPINE MESYLATE 1 MG TAB PO SCH (20:40)
[2024-08-15] MEDS: LACOSAMIDE 50 MG TABLET PO SCH (20:40)
[2024-08-15] MEDS: levETIRAcetam 500 MG TAB PO SCH (20:40)
[2024-08-15] MEDS: LORazepam 1 MG TAB PO SCH (20:40)
[2024-08-15] MEDS: PARoxetine 20 MG TAB PO SCH (20:40)
[2024-08-16] MEDS: ATORVASTATIN 40 MG TAB PO SCH (08:38)
[2024-08-16] MEDS: PANTOPRAZOLE 40 MG TABLET PO SCH (08:38)
[2024-08-16] MEDS: MONTELUKAST 10 MG TAB PO SCH (08:38)
[2024-08-16] MEDS: PROPRANOLOL LA 60 MG CAP.SA.24H PO SCH (08:40)
[2024-08-16 09:04] LABS: Carbamazepine (Tegretol) <2.0 UG/ML (4.0-12.0)
[2024-08-16 09:24] LABS: Basophils # (A) 0.02 X 10*3/uL (0.00-0.10); Basophils % (A) 0.3 %; Eosinophils % (A) 2.8 %; HCT 40.1 % (39.6-50.0); HGB 14.2 g/dL (13.0-17.0); Lymphocytes # (A) 1.82 X 10*3/uL (0.90-5.00); Lymphocytes % (A) 25.2 %; MCH 32.9 pg (27.0-32.0); MCHC 35.4 g/dL (32.0-37.0); Mean Platelet Volume 10.2 FL (9.5-12.2); Monocytes # (A) 0.93 X 10*3/uL (0.20-1.00); Monocytes % (A) 12.9 %; NRBC Per 100 WBC 0 X 10*3/uL (0.00-0.01); Neutrophils # (A) 4.24 X 10*3/uL (1.80-7.70); Neutrophils % (A) 58.7 %; Platelet Count 154 X 10*3/uL (140-440); RBC 4.31 X 10*6/uL (4.40-5.60); RDW 12.4 % (11.5-14.5); WBC 7.22 X 10*3/uL (4.50-10.00)
[2024-08-16 10:39] LABS: BUN/Creat Ratio 9.22 Ratio (12.00-20.00); Blood Urea Nitrogen 8.3 mg/dL (9.0-27.0); Calcium 8.6 mg/dL (8.7-10.3); Carbon Dioxide 22.7 mmol/L (21.6-31.8); Chloride 106 mmol/L (96-109); Glucose 88 mg/dL (70-110); Potassium 3.6 mmol/L (3.5-5.5); Sodium 141 mmol/L (135-145)
--- NOTE | 2024-08-16 11:34 | P.PN ---
Subjective Progress Note Date: 08/16/24 I am following up with the patient and he feels he is doing well. He was sleeping on initial presentation and just woke up and stated that he is doing well then went back to sleep. No further seizure-like activity Objective - Vital Signs Vital signs: Vital Signs Temp 97.5 F L 08/16/24 07:00 Pulse 74 08/16/24 07:00 Resp 16 08/16/24 07:00 BP 126/79 08/16/24 07:00 Pulse Ox 96 08/16/24 07:00 FiO2 Intake & Output 08/15/24 08/16/24 08/16/24 18:59 06:59 18:59 Intake Total 360 590 Balance 360 590 Weight 88.451 kg Intake: Oral 360 590 Other: Voiding Method Toilet Toilet Toilet Urinal Urinal Urinal # Voids 2 # Bowel Movements 1 - Exam General: Lying in bed and not in acute distress. Neuro: Limited but was sleeping then awakeable to voice. Oriented to self. He followed minimal simple commands smiling showing thumbs up. No Facial weakness Some of the workup during this hospital visit consisted of: I reviewed the lab workup. TSH is 1.470 Folate is 10.30 Vitamin B12 is 370 Ammonia is 30 Carbamazepine level is less than 2 Serum alcohol is less than 10. CT of the head is reported as no acute intracranial hemorrhage or midline shift. I personally reviewed the CT and agree with the report. Dilantin level is less than 3 which is considered very subtherapeutic. - Labs CBC & Chem 7: 08/16/24 06:06 08/16/24 05:58 Labs: Abnormal Lab Results - Last 24 Hours (Table) 08/15/24 08/16/24 08/16/24 Range/Units 11:46 05:58 06:06 RBC 4.31 L (4.40-5.60) X 10*6/uL MCH 32.9 H (27.0-32.0) pg Anion Gap 12.30 H (4.00-12.00) mmol/L BUN 8.3 L (9.0-27.0) mg/dL BUN/Creatinine Ratio 9.22 L (12.00-20.00) Ratio Calcium 8.6 L (8.7-10.3) mg/dL Carbamazepine <2.0 L (4.0-12.0) UG/ML Assessment and Plan Assessment: This is a 49-year-old gentleman with underlying history of seizure, developmental delay, tobacco use and alcohol use who presents from his nursing facility because of seizure-like activity. He states he is on statin but it seems his Dilantin is very subtherapeutic less than 3 Breakthrough seizure and likely due to medication noncompliance especially with subtherapeutic Dilantin--currently he is stable Low normal vitamin B12 (370). Underlying seizure History of developmentally delay Tobacco use Alcohol use Plan: Keppra 500 mg twice daily, Dilantin extended release 200 mg 1 tablet 3 times daily, Vimpat 200 mg twice daily therefore will resume them. Seizure precautions seizure pads Will hold off any EEG because of his unknown history of seizure Low normal vitamin B12, started on Vitamin B12 1000mcg daily PO. Was counseled on alcohol and tobacco cessation. Will defer the rest of the medical management to primary and other specialist Upon discharge recommend the patient to follow-up with neurologist as outpatient within 2-3 weeks. There is no further neurological workup. Will sign off. Please reconsult if needed. Time with Patient: Less than 30
[2024-08-16] MEDS: THIAMINE 100 MG TAB PO SCH (13:04)
[2024-08-16] MEDS: CYANOCOBALAMIN 500 MCG TAB PO SCH (13:04)
--- NOTE | 2024-08-16 13:17 | P.DS ---
Providers Date of admission: 08/15/24 04:22 Expected date of discharge: 08/16/24 Attending physician: Savana Varghese MD Consults: 08/15/24 04:21 Consult Physician Routine Consulting Provider: Ramon Siddiqi Consult Reason/Comments: breakthrough seizures, medication compliant Do you want consulting provider notified?: Yes, Notify in am Primary care physician: Stated None Hospital Course: Discharge Diagnosis: Breakthrough seizures Seizure disorder Medication noncompliance Developmental delay Schizophrenia Dyslipidemia Hospital Course: 49-year-old male with a PMH of developmental delay, schizophrenia, hypertension, and seizure disorder, resident of care facility in [facility] who was brought to the emergency room by EMS after a witnessed seizure episode. L aboratory evaluation in the emergency room revealed Dilantin levels undetectable, WBC count of 10.8, chloride 109, BUN 8, glucose 125. CT brain was unremarkable with EKG showing sinus rhythm with PVCs at 83 bpm. Patient was evaluated by neurology. Dilantin level undetectable. Patient likely not taking his medications at home. Patient being discharged home with clear instructions to follow-up with neurology and PCP as well as be compliant with his medications. No further seizure while inpatient. Repeat labs within normal limits. Patient seen and examined at bedside. Vital signs reviewed and stable. General: Nontoxic, no distress, appears at stated age Derm: Warm, dry Head: Atraumatic, normocephalic, symmetric Eyes: EOMI, no lid lag, anicteric sclera Mouth: No lip lesion, mucus membranes moist Cardiovascular: S1S2 reg, no murmur Lungs: CTA bilateral, no rhonchi, no rales, no accessory muscle use Abdominal: Soft, nontender to palpation, no guarding, no appreciable organomegaly Ext: No gross muscle atrophy, no edema, no contractures Neuro: CN II-XI grossly intact, no focal neuro deficits Psych: Alert, oriented, appropriate affect A total of 36 minutes of time were spent preparing this complex discharge summary. Patient was discharged on 08/16/2024 at 1242. Plan - Discharge Summary Discharge Rx Participant: No New Discharge Prescriptions: New Cyanocobalamin [Vitamin B-12] 1,000 mcg PO DAILY #100 tab Thiamine [Vitamin B-1] 100 mg PO DAILY #100 tab Continue levETIRAcetam [Keppra] 500 mg PO BID Phenytoin Sodium Extended [Dilantin] 200 mg PO TID Atorvastatin [Lipitor] 40 mg PO DAILY fluPHENAZine decanoate [Prolixin Decanoate] 25 mg IM Q14D Omeprazole [PriLOSEC] 20 mg PO AC-BRKFST PARoxetine HCL [Paxil] 40 mg PO HS Benztropine Mesylate [Cogentin] 1 mg PO BID Lacosamide [Vimpat] 200 mg PO BID LORazepam [Ativan] 1 mg PO BID Montelukast [Singulair] 10 mg PO DAILY Propranolol LA [Inderal LA] 60 mg PO DAILY Discharge Medication List Phenytoin Sodium Extended [Dilantin] 200 mg PO TID 05/17/16 [History] levETIRAcetam [Keppra] 500 mg PO BID 05/17/16 [History] Atorvastatin [Lipitor] 40 mg PO DAILY 08/15/24 [History] Benztropine Mesylate [Cogentin] 1 mg PO BID 08/15/24 [History] LORazepam [Ativan] 1 mg PO BID 08/15/24 [History] Lacosamide [Vimpat] 200 mg PO BID 08/15/24 [History] Montelukast [Singulair] 10 mg PO DAILY 08/15/24 [History] Omeprazole [PriLOSEC] 20 mg PO AC-BRKFST 08/15/24 [History] PARoxetine HCL [Paxil] 40 mg PO HS 08/15/24 [History] Propranolol LA [Inderal LA] 60 mg PO DAILY 08/15/24 [History] fluPHENAZine decanoate [Prolixin Decanoate] 25 mg IM Q14D 08/15/24 [History] Cyanocobalamin [Vitamin B-12] 1,000 mcg PO DAILY #100 tab 08/16/24 [Rx] Thiamine [Vitamin B-1] 100 mg PO DAILY #100 tab 08/16/24 [Rx] Follow up Appointment(s)/Referral(s): Gavino Holley MD [REFERRING] - 1 Week [facility] [NON-STAFF] - 1 Week None,Stated [Primary Care Provider] - 1-2 days Patient Instructions/Handouts: Seizure/Epilepsy Discharge Instructions & Follow-Up, Thiamine (By mouth), Vitamin B-12 (By mouth) Activity/Diet/Wound Care/Special Instructions: Follow up with PCP and neurology. Discharge Disposition: HOME SELF-CARE
[2024-08-16 19:33] VITALS: RESP 18
[2024-08-17 07:58] VITALS: BP 127/81; PULSE 68; TEMP 97.8
--- NOTE | 2024-08-17 12:21 | P.DS ---
Providers Date of admission: 08/15/24 04:22 Expected date of discharge: 08/17/24 Attending physician: Savana Varghese MD Consults: 08/15/24 04:21 Consult Physician Routine Consulting Provider: Ramon Siddiqi Consult Reason/Comments: breakthrough seizures, medication compliant Do you want consulting provider notified?: Yes, Notify in am Primary care physician: Stated None Hospital Course: Discharge Diagnosis: Breakthrough seizures Seizure disorder Medication noncompliance Developmental delay Schizophrenia Dyslipidemia Hospital Course: 49-year-old male with a PMH of developmental delay, schizophrenia, hypertension, and seizure disorder, [facility] who was brought to the emergency room by EMS after a witnessed seizure episode. L aboratory evaluation in the emergency room revealed Dilantin levels undetectable, WBC count of 10.8, chloride 109, BUN 8, glucose 125. CT brain was unremarkable with EKG showing sinus rhythm with PVCs at 83 bpm. Patient was evaluated by neurology. Dilantin level undetectable. Patient likely not taking his medications at home Or it was recently discontinued. Refill provided. Patient being discharged home with clear instructions to follow-up with neurology and PCP as well as be compliant with his medications. No further seizure while inpatient. Repeat labs within normal limits. Patient seen and examined at bedside. Vital signs reviewed and stable. General: Nontoxic, no distress, appears at stated age Derm: Warm, dry Head: Atraumatic, normocephalic, symmetric Eyes: EOMI, no lid lag, anicteric sclera Mouth: No lip lesion, mucus membranes moist Cardiovascular: S1S2 reg, no murmur Lungs: CTA bilateral, no rhonchi, no rales, no accessory muscle use Abdominal: Soft, nontender to palpation, no guarding, no appreciable organomegaly Ext: No gross muscle atrophy, no edema, no contractures Neuro: CN II-XI grossly intact, no focal neuro deficits Psych: Alert, oriented, appropriate affect A total of 36 minutes of time were spent preparing this complex discharge summary. Patient was discharged on 08/17/2024 at 0755. Patient Condition at Discharge: Stable Plan - Discharge Summary Discharge Rx Participant: No New Discharge Prescriptions: New Cyanocobalamin [Vitamin B-12] 1,000 mcg PO DAILY #100 tab Thiamine [Vitamin B-1] 100 mg PO DAILY #100 tab Continue levETIRAcetam [Keppra] 500 mg PO BID Atorvastatin [Lipitor] 40 mg PO DAILY fluPHENAZine decanoate [Prolixin Decanoate] 25 mg IM Q14D Omeprazole [PriLOSEC] 20 mg PO AC-BRKFST PARoxetine HCL [Paxil] 40 mg PO HS Phenytoin Sodium Extended [Dilantin] 200 mg PO TID #120 cap Benztropine Mesylate [Cogentin] 1 mg PO BID Lacosamide [Vimpat] 200 mg PO BID LORazepam [Ativan] 1 mg PO BID Montelukast [Singulair] 10 mg PO DAILY Propranolol LA [Inderal LA] 60 mg PO DAILY Discharge Medication List levETIRAcetam [Keppra] 500 mg PO BID 05/17/16 [History] Atorvastatin [Lipitor] 40 mg PO DAILY 08/15/24 [History] Benztropine Mesylate [Cogentin] 1 mg PO BID 08/15/24 [History] LORazepam [Ativan] 1 mg PO BID 08/15/24 [History] Lacosamide [Vimpat] 200 mg PO BID 08/15/24 [History] Montelukast [Singulair] 10 mg PO DAILY 08/15/24 [History] Omeprazole [PriLOSEC] 20 mg PO AC-BRKFST 08/15/24 [History] PARoxetine HCL [Paxil] 40 mg PO HS 08/15/24 [History] Propranolol LA [Inderal LA] 60 mg PO DAILY 08/15/24 [History] fluPHENAZine decanoate [Prolixin Decanoate] 25 mg IM Q14D 08/15/24 [History] Cyanocobalamin [Vitamin B-12] 1,000 mcg PO DAILY #100 tab 08/16/24 [Rx] Thiamine [Vitamin B-1] 100 mg PO DAILY #100 tab 08/16/24 [Rx] Phenytoin Sodium Extended [Dilantin] 200 mg PO TID #120 cap 08/17/24 [Rx] Follow up Appointment(s)/Referral(s): Gavino Holley MD [REFERRING] - 1 Week (the office will call to set up a follow up appointment) Sparkle Hansen PAC [REFERRING] - 1 Week (Please call and schedule follow-up appointment.) Patient Instructions/Handouts: Seizure/Epilepsy Discharge Instructions & Follow-Up, Thiamine (By mouth), Vitamin B-12 (By mouth) Activity/Diet/Wound Care/Special Instructions: Follow up with Primary Care Physician and Neurologist. [facility] [phone] Discharge Disposition: HOME SELF-CARE
== END 2024-08-17 10:45 | disposition home or self-care (01) ==
LOC: EC 20:43 → 6NMEDSUR 08-15 04:22 → 5NMEDONC 08-15 05:47
PROVIDERS: ADMIT Internal Medicine; ATTEND Internal Medicine
DX: G40.909 Epilepsy, unspecified, not intractable, without status epilepticus (principal); R62.50 Unspecified lack of expected normal physiological development in childhood; F20.9 Schizophrenia, unspecified; Z91.148 Patient's other noncompliance with medication regimen for other reason; E78.5 Hyperlipidemia, unspecified; F17.200 Nicotine dependence, unspecified, uncomplicated; I10 Essential (primary) hypertension; I49.3 Ventricular premature depolarization; Z79.899 Other long term (current) drug therapy; D72.829 Elevated white blood cell count, unspecified; F10.90 Alcohol use, unspecified, uncomplicated
CPT/HCPCS: 96361 ×2; 96365; 96372 ×3; 96375; 99285; 36415; 93005; 80156; 80053; 80048; 84443; 82607; 82140; 80185; 82746; 83735; 85025 ×2; 80320; 70450; G0378 ×4; J2060; J1165; J1650 ×3; J1953